=== PATIENT | female | born 1950 | race Hispanic/Latino ===

== ENCOUNTER → 2018-05-19 | Day surgery (SDC) | payer OTHER ==
[2018-04-27 15:07] LABS: BASOPHILS # (AUTO) 0.1 (0.0-0.1); BASOPHILS % 0.6 % (0.0-1.0); EOSINOPHILS # (AUTO) 0.3 (0.0-0.4); EOSINOPHILS % 2.9 % (0.0-6.0); HEMATOCRIT 33.2 % (34.2-44.1); HEMOGLOBIN 11.4 g/dL (12.0-16.0); LYMPHOCYTES # (AUTO) 3.6 (1.0-3.2); LYMPHOCYTES % 34.4 % (18.0-39.1); MEAN CORPUSCULAR HGB CONC 34.3 g/dL (31-35); MEAN CORPUSCULAR VOLUME 90.2 fL (81-99); MONOCYTES # (AUTO) 0.8 (0.2-0.8); MONOCYTES % 7.8 % (4.4-11.3); NEUTROPHILS # (AUTO) 5.7 (2.1-6.9); NEUTROPHILS % 53.9 % (38.7-80.0); PLATELET COUNT 406 x10e3/uL (140-360); RED BLOOD COUNT 3.68 x10e6/uL (3.6-5.1); RED CELL DISTRIBUTION WIDTH 13.5 % (11.7-14.4)
[~2018-05-19] MED LIST: AMLODIPINE BESYLATE PO; ATENOLOL PO; BACLOFEN PO; FENOFIBRATE PO; FENTANYL CITRATE/PF 100MCG/2 ML INJ ONE; MIDAZOLAM HCL 2 MG/2 ML VIAL ONE; PROPOFOL IV EMULSION 10 MG/ML 50 ML VIAL ONE
--- OUTSIDE RECORDS SUMMARY | 2018-05-19 05:13 | XMS REPORT ---
[facility] Address Unknown Phone Unavailable Care Team Providers Care Supply Chain Manager Name Role Phone Unavailable Unavailable Payers Payer Name Policy Type Policy Number Effective Date Expiration Date Problems This patient has no known problems. Allergies, Adverse Reactions, Alerts Allergy Name Allergy Type Status Severity Reaction(s) Onset Date Inactive Date Treating Clinician Comments No Known Contrast Allergies DA Active U 2006-11-23 00:00:00 No Known Drug Allergies DA Active U 2006-11-23 00:00:00 No Known Food Allergies DA Active U 2006-11-23 00:00:00 No Known Other Allergies DA Active U 2006-11-23 00:00:00 Medications This patient has no known medications.
[2018-05-19 08:15] VITALS: BP 120/61
== END | disposition home or self-care (01) ==
LOC: OR 05:10
PROVIDERS: ATTEND Internal Medicine Gastroenterology
DX: K29.80 Duodenitis without bleeding (principal); R07.89 Other chest pain; R19.7 Diarrhea, unspecified; Z12.11 Encounter for screening for malignant neoplasm of colon; E78.5 Hyperlipidemia, unspecified; E11.9 Type 2 diabetes mellitus without complications; Z88.8 Allergy status to other drugs, medicaments and biological substances; K29.70 Gastritis, unspecified, without bleeding; K44.9 Diaphragmatic hernia without obstruction or gangrene; K31.7 Polyp of stomach and duodenum; Z01.810 Encounter for preprocedural cardiovascular examination; Z01.812 Encounter for preprocedural laboratory examination
CPT/HCPCS: 36415; 43239; 43251; 85025; 93005; J2250

== ENCOUNTER → 2019-07-06 | Day surgery (SDC) | payer MEDICARE ==
[2019-07-02 09:38] LABS: BASOPHILS % 0.4 % (0.0-1.0); EOSINOPHILS # (AUTO) 0.2 (0.0-0.4); HEMATOCRIT 31.3 % (34.2-44.1); HEMOGLOBIN 10.5 g/dL (12.0-16.0); LYMPHOCYTES # (AUTO) 2.5 (1.0-3.2); LYMPHOCYTES % 32.3 % (18.0-39.1); MEAN CORPUSCULAR HEMOGLOBIN 30.1 pg (28-32); MEAN CORPUSCULAR HGB CONC 33.5 g/dL (31-35); MEAN CORPUSCULAR VOLUME 89.7 fL (81-99); MONOCYTES # (AUTO) 0.6 (0.2-0.8); MONOCYTES % 7.7 % (4.4-11.3); NEUTROPHILS # (AUTO) 4.3 (2.1-6.9); NEUTROPHILS % 56.5 % (38.7-80.0); PLATELET COUNT 371 x10e3/uL (140-360); RED BLOOD COUNT 3.49 x10e6/uL (3.6-5.1); RED CELL DISTRIBUTION WIDTH 13.1 % (11.7-14.4)
[~2019-07-06] MED LIST changes: +CHLORTHALIDONE25 MG PO; +FAMOTIDINE20 MG PO; +FENTANYL CITRATE/PF 100MCG/2 ML INJ IV ONE; -FENTANYL CITRATE/PF 100MCG/2 ML INJ ONE; +HYDROXYCHLOROQ200 MG PO; -MIDAZOLAM HCL 2 MG/2 ML VIAL ONE
[2019-07-06 10:15] VITALS: BP 114/66
== END | disposition home or self-care (01) ==
LOC: OR 06:30
PROVIDERS: ATTEND Internal Medicine Gastroenterology
CPT/HCPCS: 36415; 43239; 82948; 85025; 93005; J3010

== ENCOUNTER 2019-11-11 15:14 | Inpatient (IN) | payer MEDICARE, OTHER ==
[~2019-11-11] VITALS: Ht 154.9 cm; Wt 76.7 kg
[~2019-11-11 15:14] MED LIST changes: -FENTANYL CITRATE/PF 100MCG/2 ML INJ IV ONE; -PROPOFOL IV EMULSION 10 MG/ML 50 ML VIAL ONE
--- OUTSIDE RECORDS SUMMARY | 2019-11-11 15:17 | XMS REPORT | Clinical Summary ---
Author Author [facility] Address Unknown Phone Unavailable Care Team Providers Care Blast Furnace Helper Name Role Phone Priscilla Taylor MD PCP Allergies Comments Active Allergy Reactions Severity Noted Date Glipizide Unknown 06/24/2019 Reaction Lisinopril Unknown 06/24/2019 Reaction Metformin Unknown 06/24/2019 Reaction Metronidazole Unknown 06/24/2019 Reaction Pantoprazole Unknown 06/24/2019 Reaction Medications End Date Status Medication Sig Dispensed Refills Start Date Active amLODIPine (NORVASC) 10 Take 10 mg by 0 03/30/ mg tablet mouth daily. 9 Active atenoloL (TENORMIN) 25 MG Take 25 mg by 0 03/09 tablet mouth daily. 9 Active baclofen (LIORESAL) 10 MG Take 10 mg by 0 03/10 tablet mouth daily. 9 Active chlorthalidone (HYGROTEN) Take 25 mg by 0 03/09 25 MG tablet mouth daily. 9 Active fenofibrate (TRICOR) 145 Take 145 mg 0 MG tablet by mouth daily. Active hydroxychloroquine Take 400 mg 0 (PLAQUENIL) 200 mg tablet by mouth daily. Active famotidine (PEPCID) 40 MG Take 40 mg by 0 tablet mouth daily. Active om Take by 0 [id number] mouth. st 500 mg-500 mcg -1 mg-12.5 mg capsule Active calcium carbonate Take 600 mg 0 (CALCIUM 600) 600 mg by mouth 2 calcium (1,500 mg) tablet (two) times a day with meals. 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 Blood Pressure 62 06/24/2019 1:16 PM INTERNET MARKETING SPECIALIST Pulse - - Temperature - - Respiratory Rate 95% 06/24/2019 1:16 PM INTERNET MARKETING SPECIALIST Oxygen Saturation - - Inhaled Oxygen Concentration 72.7 kg (160 lb 3.2 oz) 06/24/2019 1:16 PM INTERNET MARKETING SPECIALIST Weight 154.9 cm (5' 1") 06/24/2019 1:16 PM INTERNET MARKETING SPECIALIST Height 30.27 06/24/2019 1:16 PM INTERNET MARKETING SPECIALIST Body Mass Index Plan of Treatment Health Maintenance Due Date Last Done Comments BREAST CANCER SCREENING 01/14/2000 COLONOSCOPY SCREENING 01/14/2000 SHINGLES VACCINES (#1) 01/14/2000 65+ PNEUMOCOCCAL VACCINE 2015 (1 of 2 - PCV13) INFLUENZA VACCINE 01/08/2020 Results Not on fileafter 11/10/2018 Insurance Type Payer Benefit Subscriber ID Effective Phone Address Plan / Dates Group HMO [employer] TEX[employer] xxxxxxxxx 2018-Shadi castanon Advance Directives For more information, please contact: [phone] Patient Senior Technical Architect Explanation Type Date Recorded Advance Directives, Living Will and Medical Power of Investment Officer
--- OUTSIDE RECORDS SUMMARY | 2019-11-11 15:17 | XMS REPORT | Clinical Summary ---
Author Author [facility] Organization [facility] Address Unknown Phone Unavailable Care Team Providers Care Aquatics Specialist Name Role Phone PCP Unavailable Allergies Comments Active Allergy Reactions Severity Noted Date Lisinopril Cough 01/15/2012 Medications End Date Status Medication Sig Dispensed Refills Start Date Active CALCIUM CARBONATE/VITAMIN Take by 0 D3 (CALCIUM + D OR) mouth. Active PYRIDOXINE HCL (VITAMIN Take by 0 B-6 OR) mouth. Active CYANOCOBALAMIN, VITAMIN Take by 0 B-12, (VITAMIN B-12 OR) mouth. Active MULTIVITAMIN OR Take by 0 mouth. Active fenofibrate Take 1 tablet 90 tablet 2 nanocrystallized (TRICOR) by mouth 5 145 mg tabletIndications: daily. HTN (hypertension) (therapeutic substitution for fenofibrate 160 mg per P&T) Active potassium chloride Take 1 tablet 90 tablet 2 08/05 (KLOR-CON M10) 10 mEq by mouth 5 extended release daily. tabletIndications: HTN (hypertension) Active atenolol-chlorthalidone TAKE ONE-HALF 90 tablet 2 50-25 mg per TABLET BY 5 tabletIndications: HTN MOUTH EVERY (hypertension) DAY. Active acetaminophen-codeine Take 1 tablet 30 tablet 0 (TYLENOL/CODEINE #3) by mouth 5 300-30 mg per every 4 hours tabletIndications: as needed for Neoplasm of scalp Pain. Active dexlansoprazole Take 1 90 capsule 1 (DEXILANT) 60 mg delayed capsule by 5 release mouth daily. capsuleIndications: Other and unspecified hyperlipidemia Active Sodium Hyaluronate, by 6 mL 0 [place], (HYALGAN) 10 INTRA-ARTICUL 5 mg/mL SolnIndications: AR route Left knee pain, DJD Please (Degenerative Joint dispense 3 Disease) of Knee prefilled syringes of Hyalgan (20mg/2ml) to be administered in clinic for series of three consecutive injections. 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 Gait difficulty 12/20/2013 Garrett's cyst 11/16/2013 Osteoarthritis 10/26/2013 Knee pain, left 10/09/2013 Bilateral carpal tunnel syndrome 12/18/2012 Positional vertigo 09/28/2010 HTN (hypertension) 02/14/2010 Immunizations Name Administration Dates Next Due Asa Ec 325mg Tab 11/02/2010 Nitrostat 0.4mg Tab 11/02/2010 Pneumoccoccal 10/18/2011 Family History Medical History Relation Name Comments Heart Mother Relation Name Status Comments Brother Brother Alive Brother Alive Brother Alive Father Mother Sister Sister Alive Sister Alive Social History Date Tobacco Use Types Packs/Day Years Used Former Smoker Smokeless Tobacco: Never Used Tobacco Cessation: Counseling Given: No Drinks/Week oz/Week Comments Alcohol Use No Sex Assigned at Date Recorded Not on file Industry Job Start Date Occupation Not on file Not on file Not on file Travel End Travel History Travel Start No recent travel history available. Last Filed Vital Signs Not on file Plan of Treatment Health Maintenance Due Date Last Done Comments Colorectal Cancer Scrn 08/05/2015 08/05/2014 Annual (FIT/FOBT) Age 50 to 75 Breast Cancer Scrn 10/07/2015 10/06/2014, 015, 09/26/2012, (Yearly) Additional history exists IMM Pneumococcal Age 65 Completed 10/18/2011 and Up Results Not on fileafter 11/10/2018
--- OUTSIDE RECORDS SUMMARY | 2019-11-11 15:17 | XMS REPORT | Continuity of Care Document ---
Author Author [facility] t Organization [facility] Address [address] [place] [address] Phone Unavailable Care Team Providers Care Informatics Nurse Specialist Name Role Phone Brandon LEMOS, Priscilla PCP Jagdeep LEMOS, Marshall Attphys Karen Mitchell Attphys Unavailable Bello RN, Ijeoma Attphys Unavailable Sandra LEMOS, Sera Attphys Payers Payer Name Policy Type Policy Number Effective Date Expiration Date S ben TEXANPLUSTEXANPLUS [id number] xxxxxxxxx 2018 00:00:00 [place] [facility] Problems Condition Name Condition Details Condition Category Status Onset Date Resolution Date Last Treatment Date Treating Clinician Comments Source CKD (chronic kidney disease) CKD (chronic kidney disease) Disease Active 2014-10-21 00:00:00 [facility] Synovitis of knee Synovitis of knee Disease Active 2014-02-01 00:00:00 [facility] Popliteal cyst Popliteal cyst Disease Active 2014-02-01 00:00:00 [facility] MMT (medial meniscus tear) MMT (medial meniscus tear) Disease Active 2014-02-01 00:00:00 [facility] Left knee DJD Left knee DJD Disease Active 2014-02-01 00:00:00 [facility] Gait difficulty Gait difficulty Disease Active 2013-12-20 00:00:00 [facility] Garrett's cyst Garrett's cyst Disease Active 2013-11-16 00:00:00 [facility] Osteoarthritis Osteoarthritis Disease Active 2013-10-26 00:00:00 [facility] Knee pain, left Knee pain, left Disease Active 2013-10-09 00:00:00 [facility] Bilateral carpal tunnel syndrome Bilateral carpal tunnel syndrom e Disease Active 2012-12-18 00:00:00 [facility] Positional vertigo Positional vertigo Disease Active 2010-09-28 00:00:0 0 [facility] HTN (hypertension) HTN (hypertension) Disease Active 2010-02-14 00:00:0 0 [facility] Allergies, Adverse Reactions, Alerts Allergy Name Allergy Type Status Severity Reaction(s) Onset Date Inacti ve Date Treating Clinician Comments Source Glipizide Propensity to adverse reactions to drug Active Unknown Reaction 2019-06-24 00:00:00 [facility] Lisinopril Propensity to adverse reactions to drug Active Unknown Reaction 2019-06-24 00:00:00 [facility] Metformin Propensity to adverse reactions to drug Active Unknown Reaction 2019-06-24 00:00:00 [facility] Metronidazole Propensity to adverse reactions to drug Active Unknown Reaction 2019-06-24 00:00:00 [facility] Pantoprazole Propensity to adverse reactions to drug Active Unknown Reaction 2019-06-24 00:00:00 [facility] Lisinopril Propensity to adverse reactions to drug Active Cough 2012-01-15 00:00:00 [facility] No Known Contrast Allergies DA Active U 2006-11-23 00:00: 00 [facility] No Known Drug Allergies DA Active U 2006-11-23 00:00:00 [facility] No Known Food Allergies DA Active U 2006-11-23 00:00:00 [facility] No Known Other Allergies DA Active U 2006-11-23 00:00:00 [facility] Family History Family Member Diagnosis Comments Start Date Stop Date Source Natural mother Heart disease [place] Natural mother Hypertension [place] [facility] Natural mother Varicose Veins Damien foster Druze Natural mother [facility] Social History Social Habit Start Date Stop Date Quantity Comments Source Sex Assigned At [facility] Sex Assigned At [place] [facility] Alcohol intake 2019-08-31 00:00:00 2019-08-31 00:00:00 Ex-drinker (fi nding) [place]oy Mayen Alcohol intake 2014-12-22 00:00:00 2014-12-22 00:00:00 [facility] History of tobacco use 2004-06-24 00:00:00 Current smoker [place] Mayen Smoking Status Start Date Stop Date Source Former smoker 2019-08-31 00:00:00 2019-08-31 00:00:00 [place] Former smoker 2014-12-22 00:00:00 2014-12-22 00:00:00 [facility] Medications Ordered Medication Name Filled Medication Name Start Date Stop Da te Current Medication? Ordering Clinician Indication Dosage Frequency Signature (SIG) Comments Components Source fenofibrate (TRICOR) 145 MG tablet 2019-06-24 13:23:51 Yes 145mg QD Take 145 mg by mouth daily. Soy Mayen hydroxychloroquine (PLAQUENIL) 200 mg tablet 2019-06-24 13:23:51 Yes 400mg QD Take 400 mg by mouth daily. Soy Mayen famotidine (PEPCID) 40 MG tablet 2019-06-24 13:23:51 Yes 40mg QD Take 40 mg by mouth daily. [place] Mayen om [id number]-riv-[id number]-canicga 500 mg-500 mcg -1 mg-12.5 mg capsule 2019-06-24 13:23:51 Yes Take by mouth. Soy Mayen calcium carbonate (CALCIUM 600) 600 mg calcium (1,500 mg) ta blet 2019-06-24 13:23:51 Yes 600mg Q.5D Take 600 m g by mouth 2 (two) times a day with meals. [place] Mayen baclofen (LIORESAL) 10 MG tablet 2019-03-31 00:00:00 Yes 10mg QD Take 10 mg by mouth daily. [place] Mayen amLODIPine (NORVASC) 10 mg tablet 2019-03-30 00:00:00 Yes 10mg QD Take 10 mg by mouth daily. [place] Mayen atenoloL (TENORMIN) 25 MG tablet 2019-03-22 00:00:00 Yes 25mg QD Take 25 mg by mouth daily. S[place] Mayen chlorthalidone (HYGROTEN) 25 MG tablet 2019-03-22 00:00:00 Yes 25mg QD Take 25 mg by mouth daily. [place] Justin wilkins Sodium Hyaluronate, Viscosup, (HYALGAN) 10 mg/mL Soln 2014-11-10 00:00:00 Yes DJD (Degenerative Joint Disease) of Knee by INTRA-ARTICULAR route Please dispense 3 prefilled syringes of Hyalgan (20mg/2ml) to be administered in clinic for series of three consecutive injections. [facility] dexlansoprazole (DEXILANT) 60 mg delayed release capsule 2014-10-06 00:00:00 Yes Other and unspecified hyperlipidemia 60mg QD Take 1 capsule by mouth daily. [facility] CALCIUM CARBONATE/VITAMIN D3 (CALCIUM + D OR) 2014-08-16 12:14:0 0 Yes Take by mouth. [facility] PYRIDOXINE HCL (VITAMIN B-6 OR) 2014-08-16 12:14:00 Yes Take by mouth. [facility] CYANOCOBALAMIN, VITAMIN B-12, (VITAMIN B-12 OR) 2014-08-16 12:14 :00 Yes Take by mouth. [facility] MULTIVITAMIN OR 2014-08-11 12:24:35 Yes Take by mouth. [facility] acetaminophen-codeine (TYLENOL/CODEINE #3) 300-30 mg per tab let 2014-08-11 00:00:00 Yes Neoplasm of scalp 1{tbl} Ta ke 1 tablet by mouth every 4 hours as needed for Pain. [facility] fenofibrate nanocrystallized (TRICOR) 145 mg tablet 08-05 00:00:00 Yes HTN (hypertension) 145mg QD Take 1 tablet by mouth daily. (therapeutic substitution for fenofibrate 160 mg per P&T) [facility] potassium chloride (KLOR-CON M10) 10 mEq extended release ta blet 2014-08-05 00:00:00 Yes HTN (hypertension) 10meq QD Take 1 tablet by mouth daily. [facility] atenolol-chlorthalidone 50-25 mg per tablet 2014-08-05 00:00 :00 Yes HTN (hypertension) TAKE ONE-HALF TABLET BY MOUTH EVERY DAY. [facility] Immunizations Ordered Immunization Name Filled Immunization Name Date Status Comments Source Pneumoccoccal 2011-10-18 00:00:00 Completed [facility] Nitrostat 0.4mg Tab 2010-11-02 00:00:00 Completed [facility] Asa Ec 325mg Tab 2010-11-02 00:00:00 Completed [facility] Vital Signs Vital Name Observation Time Observation Value Comments Source Systolic blood pressure 2019-06-24 13:16:00 143 mm[Hg] [facility] Diastolic blood pressure 2019-06-24 13:16:00 65 mm[Hg] [place] [place] Heart rate 2019-06-24 13:16:00 62 [facility] 2019-06-24 13:16:00 154.9 [facility] Body weight 2019-06-24 13:16:00 72.666 kg [facility] BMI 2019-06-24 13:16:00 30.27 kg/m2 [facility] Oxygen saturation in Arterial blood by Pulse oximetry 06-24 13:16:00 95 /min [facility] Procedures This patient has no known procedures. Plan of Care Planned Activity Planned Date Details Comments Source Future Scheduled Test 2020-01-08 00:00:00 INFLUENZA VACCINE [code = INFLUENZA VACCINE] [facility] Scheduled Test 2015-10-07 00:00:00 Breast Cancer Scrn (Yearly) [code = Breast Cancer Scrn (Yearly)] [facility] Scheduled Test 2015-08-05 00:00:00 Colorectal Cancer Scrn Annual (FIT/FOBT) Age 50 to 75 [code = Colorectal Cancer Scrn Annual (FIT/FOBT) Age 50 to 75] [facility] Scheduled Test 2015 00:00:00 65+ PNEUMOCOCCAL V ACCINE (1 of 2 - PCV13) [code = 65+ PNEUMOCOCCAL VACCINE (1 of 2 - PCV13)] [facility] Scheduled Test 2000-01-14 00:00:00 BREAST CANCER SCRE ENING [code = BREAST CANCER SCREENING] [facility] Scheduled Test 2000-01-14 00:00:00 COLONOSCOPY SCREEN ING [code = COLONOSCOPY SCREENING] [facility] Scheduled Test 2000-01-14 00:00:00 SHINGLES VACCINES (#1) [code = SHINGLES VACCINES (#1)] [facility] Encounters Start Date/Time End Date/Time Encounter Type Admission Type Attendi [facility] Care Department Encounter ID Source 2019-04-19 11:19:00 2019-04-19 11:19:00 Emergency E [id number] 2018-11-23 18:58:00 2018-11-23 18:58:00 Emergency E [facility] [address] [facility] [place] Results Test Description Test Time Test Comments Results Result Comments Source - [facility] 2019-01-04 14:27:00 FAX: Álvaro Angeles MD [phone] Reader: St: [facility] FAX: Priscilla uHnt MD [phone] FAX: Vini Rome MD [phone] Name: MAREK MONTES [facility] : 1950 Age/S: 68/F [address] [facility] Unit #: [id number] Loc: [place] [address] Phys: Vini Ann MD Acct: [id number] Dis Date: Status: REG CLI PHONE #: [phone] Exam Date: 01/04/2019914 FAX #: [phone] Reason: MALIGNANT NEOPLASM EXAMS: CPT CODE: [id number] PET/CT [facility] M[facility] 67540 HISTORY: Malignant neoplasm of the pancreas staging. COMPARISON: CT chest abdomen and pelvis from November 11, 2018. PET/CT SCAN: 11.6 mCi of FDG administered. Images obtained from the skull base to the upper thighs 1 hour postinjection. Blood glucose level = 100 mg/dL. HEAD AND NECK: Intense uptake within the brain parenchyma limits evaluation. Physiologic pharyngeal uptake. CHEST: No lung parenchymal uptake. Lingular nodule noted again measuring 1 cm without abnormal uptake. SUV uptake was 1.4 along with a 6 mm nodule in the right upper lobe anterolaterally with SUV uptake ranging up to 0.9. No pathologic hilar, mediastinal or axillary uptake or adenopathy. No chest wall or breast uptake. ABDOMEN: No hepatic or adrenal uptake. No pancreatic uptake is noted. No architectural distortion is noted. No ductal dilatation is noted. Excretion from both kidneys without abnormal uptake. Nonpathologic size retroperitoneal left posterior to the pancreatic body measuring 1.1 with SUV uptake ranging up to 1.9 which is not suspicious. No other pathologic mesenteric, retroperitoneal or retrocrural adenopathy. Excretion into the bowel. PELVIS: Excretion into the bowel and urinary bladder. No pelvic pathologic adenopathy. MUSCULOSKELETAL: No abnormal uptake. IMPRESSION: No abnormal uptake within the pancreas. No architectural distortion is noted. No ductal dilatation. No other areas of abnormal uptake either. Single borderline lymph node measured 1.1 cm in the retroperitoneum posterior to the pancreatic body with a SUV uptake ranging up to 1.9. This does not appear suspicious. at 1256 Reported and signed by: Tello Brown M.D. PAGE 1 Signed Report (CONTINUED) FAX: Álvaro Angeles MD [phone] Reader: St: REG FAX: Priscilla Hunt MD [phone] FAX: Vini Rome MD [phone] Name: SUSANMAREKBEV PIÑA [facility] : 1950 Age/S: 68/F [address] [facility] Unit #: [id number] Loc: [place] [address] Phys: Vnii Ann MD Acct: [id number] Dis Date: Status: REG CLI PHONE #: [phone] Exam Date: 01/04/2019914 FAX #: [phone] Reason: MALIGNANT NEOPLASM EXAMS: CPT CODE: [id number] PET/CT TUMOR SK BS MIDTH 56075 <Continued> CC: Álvaro Leonard MD; Priscilla Taylor MD; Vini Ann MD Technologist: [place] [facility]; Augie Tang Trnscrd Date/Time/By: 01/04/2019 (7176) : By: [email or web address] Orig Print D/T: S: 01/04/2019 (7967) PAGE 2 Signed Report - CT ABD PELVIS W/CONT 2018-11-11 10:08:00 Nam e: MAREK MONTES [facility] : 1950 Age/S: 68 / F [address] [facility] Unit #: [id number] Loc: [place] [address] Phys: Vini Ann MD Acct: [id number] Dis Date: Status: REG CLI PHONE #: [phone] Exam Date: 11/11/2018823 FAX #: [phone] Reason: MALIGNANT NEOPLASM EXAMS: CPT CODE: [id number] CT ABD PELVIS W/CONT 07096 HISTORY: Malignant neoplasm of and dependent pancreas/malignant. COMPARISON: None available. CT chest with contrast: 100 mL of Isovue-370. Automated exposure control. CT of abdomen: Unremarkable aorta with atherosclerotic change. No aneurysm or dissection. Unremarkable pulmonary arteries (not performed as PE protocol). Neck vasculature is well-opacified. SVC is unremarkable. Thyroid glands are normal in appearance. Esophageal wall is not thickened. No pathologic hilar, mediastinal or axillary adenopathy. Shotty left axillary adenopathy. Cardiac silhouette is mildly enlarged without pericardial effusion. Subcutaneous tissues and the musculature are normal in appearance. No lytic or blastic lesions are noted within the bony skeleton. The lungs are clear of infiltrates, effusion or congestion. Noncalcified 1 cm nodule within the lingula posteriorly best seen on image #41. This is indeterminate nodule. Correlate with PET scan. Additional 6 mm noncalcified nodule in the right upper lobe anterolaterally best seen on image #30. No bronchiectasis, honeycombing or fibrosis or endobronchial lesions. IMPRESSION: 1 cm lingular nodule in 6 mm right upper lobe lung nodule are indeterminate. Follow-up with PET scan for further characterization. No pathologic adenopathy. CT of abdomen: No liver metastases are normal enhancing masses or lesions. The liver measured 19.5 cm in length. Portal vein and hepatic artery are patent. Patient is post cholecystectomy. The spleen is enhancing homogeneously. No discrete mass is noted. Stomach is distended incompletely but normal. Pancreas is enhancing homogeneously. No discrete abnormal enhancing masses or lesions on the early on the delayed phase. Correlate with PAGE 1 Signed Report (CONTINUED) Name: MAREK MONTES [facility] : 1950 Age/S: 68 / F [address] [facility] Unit #: [id number] Loc: [place] [address] Phys: Vini Ann MD Acct: [id number] Dis Date: Status: REG CLI PHONE #: [phone] Exam Date: 11/11/2018823 FAX #: [phone] Reason: MALIGNANT NEOPLASM EXAMS: CPT CODE: [id number] CT ABD PELVIS W/CONT 29728 <Continued> either PET scan or MRI scan for further evaluation as no discrete lesions is noted on this exam. No ductal dilatation. No inflammatory changes or fluid collections either. The adrenals are normal. Kidneys are free from hydroureteronephrosis with multiple bilateral Bosniak 2 lesions with average Hounsfield unit measurement ranging greater than 20. Bosniak 1 lesion in the medial right interpolar region. No pathologic adenopathy. Ath erosclerotic change of the abdominal and pelvic vasculature which remains well opacified. No bowel obstruction or colitis or diverticulitis or enteritis. Constipation. Diverticulosis. CT PELVIS: Appendix is normal at visible but no inflammatory changes. Sigmoid diverticulosis without diverticulitis. Urinary bladder distended incompletely with mildly thickened urinary bladder wall. Patient is post hysterectomy. No free fluid or free air. No pelvic pathologic adenopathy Subcutaneous tissues and the musculature are normal in appearance. No lytic or blastic lesions are noted within the bony skeleton. DJD. IMPRESSION: No discrete mass within the pancreas. No abnormal enhancing masses or lesions. No ductal dilatation. No inflammatory changes. Correlate with PET scan and/or MRI scan for further evaluation and correlate with any outside images. at 1008 Reported and signed by: Tello Brown M.D. CC: Álvaro Leonard MD; Priscilla Taylor MD; Vini Ann MD Technologist:Kamilla Maria,RT(R),CT CTDI: DLP: Trnscb Date/Time: 11/11/2018 (1008) [email or web address] Orig Print D/T: S: 11/11/2018 (1019) PAGE 2 Signed Report - CT CHEST W/CONTRAST 2018-11-11 10:08:00 Name : MAREK MONTES [facility] : 1950 Age/S: 68 / F [address] [facility] Unit #: [id number] Loc: [place] [address] Phys: Vini Ann MD Acct: [id number] Dis Date: Status: REG CLI PHONE #: [phone] Exam Date: 11/11/2018823 FAX #: [phone] Reason: MALIGNANT NEOPLASM EXAMS: CPT CODE: [id number] CT CHEST W/CONTRAST 75387 HISTORY: Malignant neoplasm of and dependent pancreas/malignant. COMPARISON: None available. CT chest with contrast: 100 mL of Isovue-370. Automated exposure control. CT of abdomen: Unremarkable aorta with atherosclerotic change. No aneurysm or dissection. Unremarkable pulmonary arteries (not performed as PE protocol). Neck vasculature is well-opacified. SVC is unremarkable. Thyroid glands are normal in appearance. Esophageal wall is not thickened. No pathologic hilar, mediastinal or axillary adenopathy. Shotty left axillary adenopathy. Cardiac silhouette is mildly enlarged without pericardial effusion. Subcutaneous tissues and the musculature are normal in appearance. No lytic or blastic lesions are noted within the bony skeleton. The lungs are clear of infiltrates, effusion or congestion. Noncalcified 1 cm nodule within the lingula posteriorly best seen on image #41. This is indeterminate nodule. Correlate with PET scan. Additional 6 mm noncalcified nodule in the right upper lobe anterolaterally best seen on image #30. No bronchiectasis, honeycombing or fibrosis or endobronchial lesions. IMPRESSION: 1 cm lingular nodule in 6 mm right upper lobe lung nodule are indeterminate. Follow-up with PET scan for further characterization. No pathologic adenopathy. CT of abdomen: No liver metastases are normal enhancing masses or lesions. The liver measured 19.5 cm in length. Portal vein and hepatic artery are patent. Patient is post cholecystectomy. The spleen is enhancing homogeneously. No discrete mass is noted. Stomach is distended incompletely but normal. Pancreas is enhancing homogeneously. No discrete abnormal enhancing masses or lesions on the early on the delayed phase. Correlate with PAGE 1 Signed Report (CONTINUED) Name: MAREK MONTES [facility] : 1950 Age/S: 68 / F [address] [facility] Unit #: [id number] Loc: [place] [address] Phys: Vini Ann MD Acct: [id number] Dis Date: Status: REG CLI PHONE #: [phone] Exam Date: 11/11/2018823 FAX #: [phone] Reason: MALIGNANT NEOPLASM EXAMS: CPT CODE: [id number] CT CHEST W/CONTRAST 73385 <Continued> either PET scan or MRI scan for further evaluation as no discrete lesions is noted on this exam. No ductal dilatation. No inflammatory changes or fluid collections either. The adrenals are normal. Kidneys are free from hydroureteronephrosis with multiple bilateral Bosniak 2 lesions with average Hounsfield unit measurement ranging greater than 20. Bosniak 1 lesion in the medial right interpolar region. No pathologic adenopathy. Ath erosclerotic change of the abdominal and pelvic vasculature which remains well opacified. No bowel obstruction or colitis or diverticulitis or enteritis. Constipation. Diverticulosis. CT PELVIS: Appendix is normal at visible but no inflammatory changes. Sigmoid diverticulosis without diverticulitis. Urinary bladder distended incompletely with mildly thickened urinary bladder wall. Patient is post hysterectomy. No free fluid or free air. No pelvic pathologic adenopathy Subcutaneous tissues and the musculature are normal in appearance. No lytic or blastic lesions are noted within the bony skeleton. DJD. IMPRESSION: No discrete mass within the pancreas. No abnormal enhancing masses or lesions. No ductal dilatation. No inflammatory changes. Correlate with PET scan and/or MRI scan for further evaluation and correlate with any outside images. at 1008 Reported and signed by: Tello Brown M.D. CC: Álvaro Leonard MD; Priscilla Taylor MD; Vini Ann MD Technologist:Kamilla Maria,RT(R),CT CTDI: DLP: Trnscb Date/Time: 11/11/2018 (1008) [email or web address] Orig Print D/T: S: 11/11/2018 (1017) PAGE 2 Signed Report CREATININE W ESTIMATED GFR 2018-11-11 07:08:00 Test Item BEDSIDE CREATININE (test code = CREATBED) mg/dL 0.7-1.3 N GLOMERULAR FILTRATION RATE POC (test code = GFRBED) 44 >6 0 LL CREATININE W ESTIMATED [id number] 07:08:00* Test Item Value Reference Range Interpretation Comments BEDSIDE CREATININE (test code = CREATBED) 1.21 mg/dL 0.7-1.3 N GLOMERULAR FILTRATION RATE POC (test code = GFRBED) 47 >6 0 LL Previously reported result: 44 Edited by: AMILCAR on 11/11/18:21748211/11/18 0708: GFRBED previously reported as: 44 *L XR Chest 1 View [id number] 09:32:31Patient: MAREK MONTES Date/Time03/22/2018 09:00 CDTReason for ExamCHF (Congestive Heart Failure), [id number]: XR Chest 1 View FrontalHISTORY: CHF (Congestive Heart Failure), knownCOMPARISON: 03/29/2008FINDINGS:The lungs are clear. No pleural effusion or pneumothorax. The cardiac silhouette is within normal limits. No acute osseous abnormalities.IMPRESSION:No acute cardiopulmonary disease. Final Dic tated by: MD Presley, ThompsonDictated DT/TM: 03/22/2018 9:32 amSigned by: Andrew segovia MD, Treygned (Electronic Signature): 03/22/2018 9:32 am
[2019-11-11 16:52] LABS: BASOPHILS % 0.4 % (0.0-1.0); EOSINOPHILS % 0.2 % (0.0-6.0); HEMATOCRIT 30.5 % (34.2-44.1); HEMOGLOBIN 10.5 g/dL (12.0-16.0); LYMPHOCYTES % 20.9 % (18.0-39.1); MEAN CORPUSCULAR HEMOGLOBIN 29.6 pg (28-32); MEAN CORPUSCULAR HGB CONC 34.4 g/dL (31-35); MEAN CORPUSCULAR VOLUME 85.9 fL (81-99); MONOCYTES # (AUTO) 0.4 (0.2-0.8); MONOCYTES % 4.2 % (4.4-11.3); NEUTROPHILS % 73.9 % (38.7-80.0); PLATELET COUNT 393 x10e3/uL (140-360); RED BLOOD COUNT 3.55 x10e6/uL (3.6-5.1); RED CELL DISTRIBUTION WIDTH 12.5 % (11.7-14.4)
[2019-11-11 16:55] LABS: BILIRUBIN,URINE NEGATIVE (NEGATIVE); CLARITY,URINE SL CLOUDY (CLEAR); COLOR,URINE YELLOW (YELLOW); KETONES,URINE NEGATIVE (NEGATIVE); LEUKOCYTE ESTERASE ,URINE NEGATIVE (NEGATIVE); NITRITE,URINE NEGATIVE (NEGATIVE); PROTEIN,URINE DIPSTICK NEGATIVE (NEGATIVE); URINE UROBILINOGEN 0.2 mg/dL (0.2 - 1)
[2019-11-11 17:07] LABS: ALBUMIN 4.1 g/dL (3.5-5.0); ALBUMIN/GLOBULIN RATIO 0.9 (0.8-2.0); ANION GAP 14.1 mmol/L (8-16); CALCIUM 10.1 mg/dL (8.4-10.2); CREATININE, SERUM 1.55 mg/dL (0.57-1.11); POTASSIUM 4.1 mmol/L (3.5-5.1)
[2019-11-11 17:14] LABS: CREATINE KINASE MB 4.2 ng/mL (0-5.0)
[2019-11-11 17:16] LABS: BACTERIA,URINE RARE /HPF; EPITHELIAL CELLS,URINE FEW /LPF; RBC,URINE 0-5 /HPF (0-5)
[2019-11-11] MEDS ORDERED: ONDANSETRON HCL INJ 2MG/ML 2ML 2 MG/ML VIAL IV STA (17:41)
[2019-11-11] MEDS ORDERED: SODIUM CHLORIDE 0.9% 1000ML 1,000 ML IV STA (17:41)
[2019-11-11] MEDS ORDERED: BACTRIM DS TAB1 EACH PO (18:00)
[2019-11-11] MEDS ORDERED: OMEPRAZOLE40 MG PO (18:00)
[2019-11-11] MEDS ORDERED: INTEGRA CAPSUL1 EACH (18:00)
--- NOTE | 2019-11-11 18:52 | NUR ---
REPORT RC'D FROM Marycruz NICHOLSON RN.
--- OUTSIDE RECORDS SUMMARY | 2019-11-11 18:55 | XMS REPORT | Continuity of Care Document ---
Author Author [facility] t Organization [facility] Address [address] [place] [address] Phone Unavailable Care Team Providers Care Supervisor Coating Name Role Phone Brandon LEMOS, Priscilla PCP Jagdeep LEMOS, Marshall Attphys Karen Mitchell Attphys Unavailable Bello RN, Ijeoma Attphys Unavailable Sandra LEMOS, Sera Attphys Payers Payer Name Policy Type Policy Number Effective Date Expiration Date S ben TEXANPLUSTEXANPLUS [id number] xxxxxxxxx 2018 00:00:00 [facility] [facility] Problems Condition Name Condition Details Condition Category Status Onset Date Resolution Date Last Treatment Date Treating Clinician Comments Source CKD (chronic kidney disease) CKD (chronic kidney disease) Disease Active 2014-10-21 00:00:00 [facility] Synovitis of knee Synovitis of knee Disease Active 2014-02-01 00:00:00 [facility] Popliteal cyst Popliteal cyst Disease Active 2014-02-01 00:00:00 [facility] MMT (medial meniscus tear) MMT (medial meniscus tear) Disease Active 2014-02-01 00:00:00 [facility] Left knee DJD Left knee DJD Disease Active 2014-02-01 00:00:00 [facility] Gait difficulty Gait difficulty Disease Active 2013-12-20 00:00:00 [facility] Garrett's cyst Garrett's cyst Disease Active 2013-11-16 00:00:00 [facility] Osteoarthritis Osteoarthritis Disease Active 2013-10-26 00:00:00 [facility] Knee pain, left Knee pain, left Disease Active 2013-10-09 00:00:00 [facility] Bilateral carpal tunnel syndrome Bilateral carpal tunnel syndrom e Disease Active 2012-12-18 00:00:00 [facility] Positional vertigo Positional vertigo Disease Active 2010-09-28 00:00:0 0 [facility] HTN (hypertension) HTN (hypertension) Disease Active 2010-02-14 00:00:0 0 [facility] Allergies, Adverse Reactions, Alerts Allergy Name Allergy Type Status Severity Reaction(s) Onset Date Inacti ve Date Treating Clinician Comments Source Glipizide Propensity to adverse reactions to drug Active Unknown Reaction 2019-06-24 00:00:00 [facility] Lisinopril Propensity to adverse reactions to drug Active Unknown Reaction 2019-06-24 00:00:00 [facility] Metformin Propensity to adverse reactions to drug Active Unknown Reaction 2019-06-24 00:00:00 [facility] Metronidazole Propensity to adverse reactions to drug Active Unknown Reaction 2019-06-24 00:00:00 [facility] Pantoprazole Propensity to adverse reactions to drug Active Unknown Reaction 2019-06-24 00:00:00 [facility] Lisinopril Propensity to adverse reactions to drug Active Cough 2012-01-15 00:00:00 [facility] No Known Contrast Allergies DA Active U 2006-11-23 00:00: 00 [facility] No Known Drug Allergies DA Active U 2006-11-23 00:00:00 [facility] No Known Food Allergies DA Active U 2006-11-23 00:00:00 [facility] No Known Other Allergies DA Active U 2006-11-23 00:00:00 [facility] Family History Family Member Diagnosis Comments Start Date Stop Date Source Natural mother Heart disease Soy Mayen Natural mother Hypertension [facility] Natural mother Varicose Veins Damien [facility] Natural mother [facility] Social History Social Habit Start Date Stop Date Quantity Comments Source Sex Assigned At [facility] Alcohol intake 2014-12-22 00:00:00 2014-12-22 00:00:00 [facility] History of tobacco use 2004-06-24 00:00:00 Current smoker Soy Mayen Smoking Status Start Date Stop Date Source Former smoker 2014-12-22 00:00:00 2014-12-22 00:00:00 [facility] Medications Ordered Medication Name Filled Medication Name [...] mg by mouth daily. Soy Mayen om [id number] 500 mg-500 mcg -1 mg-12.5 mg capsule [...] Take 25 mg by mouth daily. Soy wilkins Sodium Hyaluronate, Viscosup, (HYALGAN) 10 mg/mL Soln 2014-11-10 00:00:00 Yes DJD (Degenerative Joint Disease) of Knee by INTRA-ARTICULAR route Please dispense 3 prefilled syringes of Hyalgan (20mg/2ml) to be administered in clinic for series of three consecutive injections. [facility] dexlansoprazole (DEXILANT) 60 mg delayed release capsule 2014-10-06 00:00:00 Yes Other and unspecified hyperlipidemia 60mg QD Take 1 capsule by mouth daily. [facility] CALCIUM CARBONATE/VITAMIN D3 (CALCIUM + D OR) 2014-08-16 12:14:0 0 Yes Take by mouth. [facility] PYRIDOXINE HCL (VITAMIN B-6 OR) 2014-08-16 12:14:00 Yes Take by mouth. [facility] CYANOCOBALAMIN, VITAMIN B-12, (VITAMIN B-12 OR) 2014-08-16 12:14 :00 Yes Take by mouth. [facility] MULTIVITAMIN OR 2014-08-11 12:24:35 Yes Take by mouth. [facility] acetaminophen-codeine (TYLENOL/CODEINE #3) 300-30 mg per tab let 2014-08-11 00:00:00 Yes Neoplasm of scalp 1{tbl} Ta ke 1 tablet by mouth every 4 hours as needed for Pain. [facility] fenofibrate nanocrystallized (TRICOR) 145 mg tablet 08-05 00:00:00 Yes HTN (hypertension) 145mg QD Take 1 tablet by mouth daily. (therapeutic substitution for fenofibrate 160 mg per P&T) [facility] potassium chloride (KLOR-CON M10) 10 mEq extended release ta blet 2014-08-05 00:00:00 Yes HTN (hypertension) 10meq QD Take 1 tablet by mouth daily. [facility] atenolol-chlorthalidone 50-25 mg per tablet 2014-08-05 00:00 :00 Yes HTN (hypertension) TAKE ONE-HALF TABLET BY MOUTH EVERY DAY. [facility] Immunizations Ordered Immunization Name Filled Immunization Name Date Status Comments Source Pneumoccoccal 2011-10-18 00:00:00 [facility] Nitrostat 0.4mg Tab 2010-11-02 00:00:00 Completed [facility] Asa Ec 325mg Tab 2010-11-02 00:00:00 Completed [facility] Vital Signs Vital Name Observation Time Observation Value Comments Source Systolic blood pressure 2019-06-24 13:16:00 143 mm[Hg] [facility] Diastolic blood pressure 2019-06-24 13:16:00 65 mm[Hg] [facility] Heart rate 2019-06-24 13:16:00 62 /min [facility] Body height 2019-06-24 13:16:00 154.9 cm [facility] [place] Body weight 2019-06-24 13:16:00 72.666 kg [place] BMI 2019-06-24 13:16:00 30.27 kg/m2 [facility] [place] Oxygen saturation in Arterial blood by Pulse oximetry 06-24 13:16:00 95 /min [facility] Procedures This patient has no known procedures. Plan of Care Planned Activity Planned Date Details Comments Source Future Scheduled Test 2020-01-08 00:00:00 INFLUENZA VACCINE [code = INFLUENZA VACCINE] [facility] Scheduled Test 2015-10-07 00:00:00 Breast Cancer Scrn (Yearly) [code = Breast Cancer Scrn (Yearly)] [facility] Scheduled Test 2015-08-05 00:00:00 Colorectal Cancer Scrn Annual (FIT/FOBT) Age 50 to 75 [code = Colorectal Cancer Scrn Annual (FIT/FOBT) Age 50 to 75] [facility] Scheduled Test 2015 00:00:00 65+ PNEUMOCOCCAL V ACCINE (1 of 2 - PCV13) [code = 65+ PNEUMOCOCCAL VACCINE (1 of 2 - PCV13)] [facility] Scheduled Test 2000-01-14 00:00:00 BREAST CANCER SCRE ENING [code = BREAST CANCER SCREENING] [facility] Scheduled Test 2000-01-14 00:00:00 COLONOSCOPY SCREEN ING [code = COLONOSCOPY SCREENING] [facility] Scheduled Test 2000-01-14 00:00:00 SHINGLES VACCINES (#1) [code = SHINGLES VACCINES (#1)] [facility] Encounters Start Date/Time End Date/Time Encounter Type Admission Type [facility] Care Department Encounter ID Source 2019-04-19 11:19:00 2019-04-19 11:19:00 Emergency E MHNW MHNW 9315 MHNW 2018-11-23 18:58:00 2018-11-23 18:58:00 Emergency E [facility]NW NW 7501 NW Results Test Description Test Time Test Comments Results Result Comments Source - PET/CT TUMOR SK BS MIDTH 2019-01-04 14:27:00 FAX: Y Daccak,Rukan MD [phone] [place]: St: REG FAX: Priscilla Hunt MD [phone] FAX: Vini Rome MD [phone] Name: MAREK MONTES [facility] : 1950 Age/S: 68/F [address] [facility] Unit #: [id number] Loc: [place] [address] Phys: Vini Ann MD Acct: [id number] Dis Date: Status: REG CLI PHONE #: [phone] Exam Date: 01/04/2019914 FAX #: [phone] Reason: MALIGNANT NEOPLASM EXAMS: CPT CODE: [id number] PET/CT TUMOR SK MIDTH 71810 HISTORY: Malignant neoplasm of the pancreas staging. [...] 1.9. This does not appear suspicious. at 1422 Reported and signed by: Tello Brown M.D. PAGE 1 Signed Report (CONTINUED) FAX: Álvaro Angeles MD [phone] [place]: St: REG FAX: Priscilla Hunt MD [phone] FAX: Vini Rome MD [phone] Name: MAREK MONTES AYANA [facility] : 1950 Age/S: 68/F [address] [facility] Unit #: [id number] Loc: [place] [address] Phys: Vini Ann MD Acct: [id number] Dis Date: Status: REG CLI PHONE #: [phone] Exam Date: 01/04/2019914 FAX #: [phone] Reason: MALIGNANT NEOPLASM EXAMS: CPT CODE: [id number] PET/CT TUMOR SK BS MIDTH 80801 <Continued> CC: Álvaro Leonard MD; Priscilla Taylor MD; Vini Ann MD Technologist: [place]; Augie Tang Trnscrd Date/Time/By: 01/04/2019 (3606) : By: [email or web address] Orig Print D/T: S: 01/04/2019 (1430) PAGE 2 Signed Report - CT ABD PELVIS W/CONT 2018-11-11 10:08:00 Nam e: MAREK MONTES [facility] : 1950 Age/S: 68 / F [address] [facility] Unit #: [id number] Loc: [place] [address] Phys: Vini Ann MD Acct: [id number] Dis Date: Status: REG CLI PHONE #: [phone] Exam Date: 11/11/2018823 FAX #: [phone] Reason: MALIGNANT NEOPLASM EXAMS: CPT CODE: [id number] CT ABD PELVIS W/CONT 62820 HISTORY: Malignant neoplasm of and dependent pancreas/malignant. [...] 1 Signed Report (CONTINUED) [facility] 1950 [facility]S: 68 [facility] F [address] [facility] Unit #: [id number] Loc: [place] [address] Phys: Vini Ann MD Acct: [id number] Dis Date: Status: REG CLI PHONE #: [phone] Exam Date: 11/11/2018823 FAX #: [phone] Reason: MALIGNANT NEOPLASM EXAMS: CPT CODE: [id number] CT ABD PELVIS W/CONT 55099 <Continued> either PET scan or MRI scan [...] Maria,RT(R),CT CTDI: DLP: Trnscb Date/Time: 11/11/2018 (1008) [email or web address] Orig Print D/T: S: 11/11/2018 (1011) PAGE 2 Signed Report - CT CHEST W/CONTRAST 2018-11-11 10:08:00 Name : MAREK MONTES [facility] : 1950 Age/S: 68 / F [address] Unit #: [id number] Loc: [place] [address] Phys: Vini Ann MD Acct: [id number] Dis Date: Status: REG CLI PHONE #: [phone] Exam Date: 11/11/2018823 FAX #: [phone] Reason: MALIGNANT NEOPLASM EXAMS: CPT CODE: [id number] CT CHEST W/CONTRAST 12971 HISTORY: Malignant neoplasm of and dependent pancreas/malignant. [...] 1 Signed Report (CONTINUED) Name: MAREK MONTES [facility] : 1950 Age/S: 68 / F [address] Unit #: [id number] Loc: [place], [place] [address] Phys: Vini Ann MD Acct: [id number] Dis Date: Status: REG CLI PHONE #: [phone] Exam Date: 11/11/2018823 FAX #: [phone] Reason: MALIGNANT NEOPLASM EXAMS: CPT CODE: [id number] CT CHEST W/CONTRAST 86982 <Continued> either PET scan or MRI scan [...] Maria,RT(R),CT CTDI: DLP: Trnscb Date/Time: 11/11/2018 (1008) [email or web address] Orig Print D/T: S: 11/11/2018 (5041) PAGE 2 Signed Report CREATININE W ESTIMATED GFR 2018-11-11 07:08:00 Test Item BEDSIDE CREATININE (test code = CREATBED) mg/dL 0.7-1.3 N GLOMERULAR FILTRATION RATE POC (test code = GFRBED) 44 >6 0 LL CREATININE W ESTIMATED [id number] 07:08:00* Test Item Value Reference Range Interpretation Comments BEDSIDE CREATININE (test code = CREATBED) 1.21 mg/dL 0.7-1.3 N GLOMERULAR FILTRATION RATE POC (test code = GFRBED) 47 >6 0 LL Previously reported result: 44 Edited by: AMILCAR on 11/11/18:657628/10/25 0708: GFRBED previously reported as: 44 *L XR Chest 1 View [id number] 09:32:31Patient: MAREK MONTES Date/Time03/22/2018 09:00 CDTReason for ExamCHF (Congestive Heart Failure), [id number]: XR Chest 1 View FrontalHISTORY: CHF (Congestive Heart Failure), knownCOMPARISON: 03/29/2008FINDINGS:The lungs are clear. No pleural effusion or pneumothorax. The cardiac silhouette is within normal limits. No acute osseous abnormalities.IMPRESSION:No acute cardiopulmonary disease. Final Dic tated by: MD Presley, Carinactsaleem DT/TM: 03/22/2018 9:32 amSigned by: Andrew segovia MD, ElizabethekSigned (Electronic Signature): 03/22/2018 9:32 am
--- OUTSIDE RECORDS SUMMARY | 2019-11-11 18:55 | XMS REPORT | Clinical Summary ---
Author Author [facility] Organization [facility] Address Unknown Phone Unavailable Care Team Providers Care Fish Culturist Name Role Phone Priscilla Taylor MD PCP [...] mouth daily. Active om Take by 0 [id number]-wzu-[id number]-F0-dfpfk mouth. st 500 mg-500 mcg -1 mg-12.5 [...] Comments Vital Sign 143/65 06/24/2019 1:16 PM ELECTRIC TRUCKER Blood Pressure 62 06/24/2019 1:16 PM ELECTRIC TRUCKER Pulse - - Temperature - - Respiratory Rate 95% 06/24/2019 1:16 PM ELECTRIC TRUCKER Oxygen Saturation - - Inhaled Oxygen Concentration 72.7 kg (160 lb 3.2 oz) 06/24/2019 1:16 PM ELECTRIC TRUCKER Weight 154.9 cm (5' 1") 06/24/2019 1:16 PM ELECTRIC TRUCKER Height 30.27 06/24/2019 1:16 PM ELECTRIC TRUCKER Body Mass Index Plan of Treatment Health [...] Advance Directives For more information, please contact: [phone] Patient Polymer Materials Consultant Explanation Type Date Recorded Advance Directives, Living Will and Medical Power of Audience Development Manager
--- OUTSIDE RECORDS SUMMARY | 2019-11-11 18:55 | XMS REPORT | Clinical Summary ---
Author Author [facility] Organization [facility] Address Unknown Phone Unavailable Care Team Providers Care Axle Inspector Name Role Phone PCP Unavailable Allergies Comments [...]
--- NOTE | 2019-11-11 19:00 | NUR ---
Covid 19 swab obtained and sent to lab.
--- NOTE | 2019-11-11 19:15 | Emergency Department Note ---
History of Present Illnes History of Present Illness Chief Complaint: Abdominal Complaints History of Present Illness This is a 69 year old female arrives the ED with complaints of abdominal pain, she states she has history of diverticulitis and was discharged 2 days ago but the pain is now worse. She states she cannot hold anything down. Chief Complaint Comment HERE FOR ABDOMINAL PAIN SINCE THIS MORNING, HAS VOMITED X2. STATES EPIGASTRIC PAIN. DENIES SHORTNESS OF BREATH, ALSO REPORTS CHILLS LAST NIGHT. Historian: Patient Arrival Mode: Car Counterintelligence Agent Required: Yes Severity: mild Timing of current episode: constant Progression: worsening Past Medical/Family History Physician Review I have reviewed the patient's past medical and family history. Any updates have been documented here. Past Medical History Recent Fever: No Clinical Suspicion of Infectio: No New/Unexplained Change in Ment: No Past Medical History: Hypertension, Hyperlipedemia, Osteoarthritis Past Surgical History: Appendectomy, Tubal Ligation Social History Smoking Cessation: Never Smoker Counseling Performed: No Alcohol Use: None Any Illegal Drug Use: No TB Exposure/Symptoms: No Physically hurt or threatened: No Other Any Pre-Existing Lines (PICC,: No Is patient up to date on immun: Yes Last Flu: utd Last Pneumovax: utd Review of Systems Review of Systems Constitutional: no symptoms EENTM: no symptoms Cardiovascular: no symptoms Respiratory: no symptoms Gastrointestinal: abdominal pain, nausea, vomiting Genitourinary: no symptoms Musculoskeletal: no symptoms Neurological: no symptoms Psychological: no symptoms Endocrine: no symptoms Hematological/Lymphatic: no symptoms Review of other systems All other systems reviewed and negative. Physical Exam Related Data Allergies: Coded Allergies: gabapentin (Verified Allergy, Mild, 07/02/19) HEADACHE lisinopril (Verified Allergy, Mild, COUGH, 04/27/18) metronidazole (Verified Allergy, Mild, 07/02/19) DIZZINESS glipizide (Verified Allergy, Unknown, DIARRHEA, 04/27/18) metformin (Verified Allergy, Unknown, DIARRHEA, 04/27/18) pantoprazole (Verified Allergy, Unknown, COUGH, 04/27/18) Triage Vital Signs Vital Signs Date Time Temp Pulse Resp B/P (MAP) Pulse Ox O2 Delivery O2 Flow Rate FiO2 11/11/19 15:36 98.1 67 16 151/76 97 Physical Exam CONSTITUTIONAL Constitutional: well-developed, well-nourished HENT HENT: normocephalic, atraumatic, oropharynx clear/moist, nose normal HENT L/R: left ext ear normal, right ext ear normal EYES Eyes: PERRL, conjunctivae normal NECK Neck: ROM normal PULMONARY Pulmonary: effort normal, breath sounds normal CARDIOVASCULAR Cardiovascular: regular rhythm, heart sounds normal, capillary refill normal, normal rate GASTROINTESTINAL Abdominal: soft, nontender, bowel sounds normal GENITOURINARY Genitourinary: exam deferred SKIN Skin: warm, dry MUSCULOSKELETAL Musculoskeletal: ROM normal NEUROLOGICAL Neurological: alert, oriented x 3, no gross motor or sensory deficits PSYCHOLOGICAL Psychological: mood/affect normal, judgement normal Results Laboratory Result Diagram: 11/11/19 1545 11/11/19 1545 Laboratory Laboratory Tests Test 11/11/19 15:45 White Blood Count 9.42 x10e3/uL (4.8-10.8) Red Blood Count 3.55 x10e6/uL (3.6-5.1) Hemoglobin 10.5 g/dL (12.0-16.0) Hematocrit 30.5 % (34.2-44.1) Mean Corpuscular Volume 85.9 fL (81-99) Mean Corpuscular Hemoglobin 29.6 pg (28-32) Mean Corpuscular Hemoglobin Concent 34.4 g/dL (31-35) Red Cell Distribution Width 12.5 % (11.7-14.4) Platelet Count 393 x10e3/uL (140-360) Neutrophils (%) (Auto) 73.9 % (38.7-80.0) Lymphocytes (%) (Auto) 20.9 % (18.0-39.1) Monocytes (%) (Auto) 4.2 % (4.4-11.3) Eosinophils (%) (Auto) 0.2 % (0.0-6.0) Basophils (%) (Auto) 0.4 % (0.0-1.0) Neutrophils # (Auto) 7.0 (2.1-6.9) Lymphocytes # (Auto) 2.0 (1.0-3.2) Monocytes # (Auto) 0.4 (0.2-0.8) Eosinophils # (Auto) 0.0 (0.0-0.4) Basophils # (Auto) 0.0 (0.0-0.1) Absolute Immature Granulocyte (auto 0.04 x10e3/uL (0-0.1) Urine Color Yellow (YELLOW) Urine Clarity Sl cloudy (CLEAR) Urine pH 6 (5 - 7) Urine Specific [place] 1.020 (1.010-1.025) Urine Protein Negative (NEGATIVE) Urine Glucose (UA) Negative (NEGATIVE) Urine Ketones Negative (NEGATIVE) Urine Blood Trace (NEGATIVE) Urine Nitrite Negative (NEGATIVE) Urine Bilirubin Negative (NEGATIVE) Urine Urobilinogen 0.2 mg/dL (0.2 - 1) Urine Leukocyte Esterase Negative (NEGATIVE) Urine RBC 0-5 /HPF (0-5) Urine WBC None /HPF (0-5) Urine Epithelial Cells Few /LPF (NONE) Urine Bacteria Rare /HPF (NONE) Urine Coarse Granular Casts 1-5 (0) Sodium Level 119 mmol/L (136-145) Potassium Level 4.1 mmol/L (3.5-5.1) Chloride Level 91 mmol/L (98-107) Carbon Dioxide Level 18 mmol/L (22-29) Anion Gap 14.1 mmol/L (8-16) Blood Urea Nitrogen 27 mg/dL (7-26) Creatinine 1.55 mg/dL (0.57-1.11) Estimat Glomerular Filtration Rate 33 ML/MIN (60-) BUN/Creatinine Ratio 17 (6-25) Glucose Level 117 mg/dL (74-118) Calcium Level 10.1 mg/dL (8.4-10.2) Total Bilirubin 0.2 mg/dL (0.2-1.2) Aspartate Amino Transf (AST/SGOT) 27 IU/L (5-34) Alanine Aminotransferase (ALT/SGPT) 17 IU/L (0-55) Alkaline Phosphatase 62 IU/L (40-150) Creatine Kinase 400 IU/L (29-168) Creatine Kinase MB 4.20 ng/mL (0-5.0) Troponin I 0.006 ng/mL (0-0.300) Total Protein 8.6 g/dL (6.5-8.1) Albumin 4.1 g/dL (3.5-5.0) Globulin 4.5 g/dL (2.3-3.5) Albumin/Globulin Ratio 0.9 (0.8-2.0) Lipase 55 U/L (8-78) Lab results reviewed: Yes Imaging Imaging results reviewed: Yes Impressions IMPRESSION: 1. Colonic diverticulosis without acute diverticulitis. 2. Status post cholecystectomy and hysterectomy. No significant biliary dilatation. 3. Indeterminate right renal lesions. Recommend further evaluation with nonemergent ultrasound of kidneys. Critical Care Time Subsequent provider I assumed direction of critical care for this patient from another provider of my specialty. Assessment & Plan Assessment & Plan Final Impression: (1) OTH DISORDERS OF ELECTROLYTE AND FLUID BALANCE, NEC (2) HYPO-OSMOLALITY AND HYPONATREMIA Assessment & Plan 69-year-old female brought to the ED with diffuse abdominal pain, noted marked hyponatremia. Patient admitted for fluid resuscitation and left foot monitoring. Depart Disposition: ADMITTED Last Vital Signs Date Time Temp Pulse Resp B/P (MAP) Pulse Ox O2 Delivery O2 Flow Rate FiO2 11/11/19 18:38 56 19 100 11/11/19 17:53 141/58 11/11/19 15:36 98.1 Home Meds Reported Medications Omeprazole (OMEPRAZOLE) 40 Mg Capsule.dr, 1 CAP PO DAILY 11/11/19 Sulfamethoxazole/Trimethoprim (BACTRIM DS TABLET) 1 Each Tablet, 1 TAB PO BID, #60 TAB 11/11/19 Iron Fum & Ps Cmp/Vit C & B (INTEGRA CAPSULE) 1 Each Capsule 11/11/19 Hydroxychloroquine Sulfate (HYDROXYCHLOROQUINE SULFATE) 200 Mg Tablet, 200 MG PO BID 07/02/19 Famotidine (FAMOTIDINE) 20 Mg Tab, 40 MG PO DAILY, #30 TAB 07/02/19 Chlorthalidone (CHLORTHALIDONE) 25 Mg Tablet, 25 MG PO DAILY 07/02/19 [Baclofen] No Conflict Check, 10 MG PO DAILY 04/27/18 [Fenofibrate] No Conflict Check, 145 MG PO HS 04/27/18 [Atenolol] No Conflict Check, 25 MG PO DAILY 04/27/18 [Amlodipine Besylate] No Conflict Check, 10 MG PO DAILY 04/27/18 ELIZABTEH POWELL, Nov 11, 2019 19:15
--- NOTE | 2019-11-11 19:43 | Diagnostic Imaging Report ---
EXAM: CT Abdomen and Pelvis WITHOUT contrast INDICATION: Abdominal pain. Nausea. COMPARISON: None. TECHNIQUE: Abdomen and pelvis were scanned utilizing a multidetector helical scanner from the lung base to the pubic symphysis without administration of IV contrast. Absence of intravenous contrast decreases sensitivity for detection of focal lesions and vascular pathology. Coronal and sagittal reformations were obtained. Routine protocol was performed. IV CONTRAST: None. ORAL CONTRAST: Water RADIATION DOSE: Total DLP: 557.43 mGy*cm Estimated effective dose: (DLP x 0.015 x size factor) mSv COMPLICATIONS: None FINDINGS: LINES and TUBES: None. LOWER THORAX: Unremarkable HEPATOBILIARY: No focal hepatic lesions. No biliary ductal dilation. GALLBLADDER: There are cholecystectomy clips. SPLEEN: No splenomegaly. PANCREAS: No focal masses or ductal dilatation. ADRENALS: No adrenal nodules KIDNEYS/URETERS: No hydronephrosis. There is a 4.4 x 4.4 cm lesion in the posterior interpolar region of the right kidney, abutting and encasing the renal sinus on image 26 series 2 which demonstrates above than water attenuation. There is also a possible 1.5 cm intermediate attenuation lesion in the sternum. Lateral lower pole of the right kidney on image 31 series 2. Small left extrarenal pelvis. No stones. GI TRACT: No abnormal distention, wall thickening, or evidence of bowel obstruction. Appendix is not identified consistent with status post appendectomy. Scattered colonic diverticula without CT evidence of acute diverticulitis. PELVIC ORGANS/BLADDER: The uterus is absent. LYMPH NODES: No lymphadenopathy. VESSELS: There is moderate atherosclerotic disease in the aorta and major arterial branches. PERITONEUM / RETROPERITONEUM: No free air or fluid. BONES: There are degenerative changes in the lumbar spine. SOFT TISSUES: Unremarkable. IMPRESSION: 1. Colonic diverticulosis without acute diverticulitis. 2. Status post cholecystectomy and hysterectomy. No significant biliary dilatation. 3. Indeterminate right renal lesions. Recommend further evaluation with nonemergent ultrasound of kidneys. Signed by: Dr. Zak Shahid M.D. on 11/11/2019 7:39 PM
[2019-11-11] MEDS: SODIUM CHLORIDE 0.9% 1000ML 1,000 ML IV SCH (20:00)
--- NOTE | 2019-11-11 20:20 | NUR ---
PATIENT IS A NEW ADMIT THAT ARRIVED VIA STRETCHER. PATIENT IS AWAKE AND TALKING. PATIENT HAS BEEN TRANSFERRED INTO THE BED. BED IS IN THE LOWEST POSITION AND CALL LIGHT IS WITHIN REACH. WILL CONTINUE TO MONITOR PATIENT.
[2019-11-11 20:46] VITALS: BP 134/61
[2019-11-11 21:57] VITALS: BP 134/61
--- NOTE | 2019-11-11 22:28 | NUR ---
PATIENT IS COMPLAINING OF ABDOMINAL PAIN AND NAUSEA. PAGED. AWAITING CALL BACK.
[2019-11-11] MEDS ORDERED: ONDANSETRON HCL INJ 2MG/ML 2ML 2 MG/ML VIAL IV PRN (23:30)
[2019-11-11] MEDS ORDERED: FAMOTIDINE 20 MG/2 ML VIAL IV SCH (23:30)
[2019-11-11] MEDS ORDERED: MORPHINE SULFATE INJ 4 MG/ML INJ 1ML IV PRN (23:30)
[2019-11-11] MEDS ORDERED: HYDRALAZINE HCL 20 MG/ML VIAL IV PRN (23:30)
[2019-11-11] MEDS ORDERED: PROMETHAZINE 12.5MG/ NACL 0.9% 12.5 MG/50 ML BAG IV PRN (23:30)
[2019-11-12] VITALS (9 sets, daily range): BP systolic 121–134; BP diastolic 54–73
[2019-11-12] MEDS: CEFTRIAXONE SOD 1 GM/NS 50 ML 50 ML IV SCH ×2 (00:42→22:52)
[2019-11-12 05:42] LABS: BASOPHILS # (AUTO) 0.1 (0.0-0.1); BASOPHILS % 0.6 % (0.0-1.0); EOSINOPHILS # (AUTO) 0.3 (0.0-0.4); EOSINOPHILS % 3.2 % (0.0-6.0); HEMATOCRIT 27.7 % (34.2-44.1); LYMPHOCYTES # (AUTO) 2.4 (1.0-3.2); LYMPHOCYTES % 27.6 % (18.0-39.1); MEAN CORPUSCULAR HEMOGLOBIN 29.2 pg (28-32); MEAN CORPUSCULAR HGB CONC 32.5 g/dL (31-35); MEAN CORPUSCULAR VOLUME 89.9 fL (81-99); MONOCYTES # (AUTO) 0.5 (0.2-0.8); MONOCYTES % 5.9 % (4.4-11.3); NEUTROPHILS # (AUTO) 5.5 (2.1-6.9); NEUTROPHILS % 62.5 % (38.7-80.0); PLATELET COUNT 238 x10e3/uL (140-360); RED BLOOD COUNT 3.08 x10e6/uL (3.6-5.1); RED CELL DISTRIBUTION WIDTH 12.6 % (11.7-14.4)
[2019-11-12 06:16] LABS: CALCIUM 9.3 mg/dL (8.4-10.2); CREATININE, SERUM 1.24 mg/dL (0.57-1.11)
[2019-11-12] MEDS: SODIUM CHLORIDE 0.9% 1000ML 1,000 ML IV SCH ×4 (06:38→21:00)
[2019-11-12 06:44] LABS: MAGNESIUM 1.6 MG/DL (1.3-2.1); PHOSPHORUS 3.2 MG/DL (2.3-4.7)
--- NOTE | 2019-11-12 06:48 | NUR ---
PATIENT IS RESTING COMFORTABLY IN THE BED. BED IS IN LOWEST POSITION AND CALL AWAD IS WITHIN REACH
[2019-11-12 07:05] LABS: THYROID STIMULATING HORMONE 1.562 uIU/mL (0.350-4.940)
--- NOTE | 2019-11-12 08:53 | Diagnostic Imaging Report ---
EXAM: Complete Abdominal Ultrasound INDICATION: Abdominal pain, renal mass COMPARISON: Outside facility CT scan 11/11/2019 TECHNIQUE: Transverse and longitudinal images of the upper abdomen were obtained. FINDINGS: Liver: Size: 15.4 cm in the right midclavicular line, normal Appearance: Normal echogenicity, smooth contour Mass: No focal masses Spleen: Size: 8.4 x 2.8 x 2.3 cm, normal Echogenicity: Normal Mass: No focal masses Gallbladder: Surgically absent Bile Ducts: Intrahepatic Ducts: No dilatation Extrahepatic Ducts: Common bile duct measures 0.6 cm, no dilatation Pancreas: Visualized portions of the pancreatic head, neck and proximal body are normal. Right Kidney: Size: 9.8 x 5.7 x 4.2 cm Echogenicity: Normal Parenchymal thickness: Normal Collecting System: No hydronephrosis Stone: None Cyst/Mass: 4.2 x 4.1 x 3.6 cm parapelvic cyst with low-level internal echoes. 1.4 x 1.4 x 1.5 cm exophytic cyst of the interpolar region Left Kidney: Size: 10.7 x 5.7 x 4.4 cm Echogenicity: Normal Parenchymal thickness: Normal Collecting System: No hydronephrosis Stone: None Cyst/Mass: None Vessels: Aorta: Visualized portions are normal Inferior Vena Cava: Visualized portions are normal Main Portal Vein: 1.2 cm, normal size with hepatopetal flow. Free Fluid: No ascites or pleural effusion IMPRESSION: 1. The previously seen right renal mass likely corresponds to a 4.2 x 4.1 x 3.6 cm complex parapelvic cyst. Further nonemergent imaging evaluation with a dedicated renal mass protocol CT scan of the abdomen is recommended in order to exclude an enhancing component. 2. Otherwise unremarkable abdominal ultrasound. Signed by: Favian Gan MD on 11/12/2019 8:49 AM
[2019-11-12] MEDS: FAMOTIDINE 20 MG/2 ML VIAL IV SCH ×2 (09:00→21:00)
[2019-11-12] MEDS: HYDROXYCHLOROQUINE SULFATE 200 MG TAB PO SCH ×2 (09:00→17:59)
--- NOTE | 2019-11-12 09:08 | NUR ---
ERICA HOLDER COMPLETED PER MD ORDER, MD MORALES INTO SEE PT, DISCUSSED POC
[2019-11-12] MEDS ORDERED: MAGNESIUM SULFATE 2GM/50ML IV ONE (09:30)
[2019-11-12] MEDS ORDERED: MAGNESIUM SULFATE 2GM/50ML 50 ML IV ONE (10:15)
--- NOTE | 2019-11-12 15:25 | History and Physical ---
PRIMARY CARE PHYSICIAN: CHIEF COMPLAINT: Abdominal pain associated with nausea and vomiting and low sodium level of 119. HISTORY: The patient is a 69-year-old female, recently started on Bactrim for an asymptomatic urinary tract infection. The patient was taken back to home. She is also on a diuretic, chlorthalidone. The patient came in with a sodium level of 119, but she is also having severe intractable nausea and vomiting. The patient was given medication. She is doing much better. Urinalysis is otherwise unremarkable. It could be from previously taking Bactrim. The patient is stable. She is receiving normal saline. PAST MEDICAL HISTORY: Diverticulosis, hypertension, rheumatoid arthritis, dyslipidemia, and osteoarthritis. PAST SURGICAL HISTORY: Cholecystectomy, appendectomy, and tubal ligation. SOCIAL HISTORY: The patient does not smoke or use alcohol. No regular drugs. ALLERGIES: TO GABAPENTIN, GLIPIZIDE, LISINOPRIL, METFORMIN, METRONIDAZOLE, AND PANTOPRAZOLE. PHYSICAL EXAMINATION: VITAL SIGNS: Temperature is 97, blood pressure 129/59, pulse rate 48, and respirations 18. GENERAL: The patient is not in acute distress. HEENT: Normocephalic and atraumatic. Anicteric. NECK: Supple grossly. PULMONARY: Clear. CARDIOVASCULAR: Bradycardia. The patient is on beta-bibi. ABDOMEN: Soft. Nondistention. Generalized discomfort. EXTREMITIES: No cyanosis or edema. NEUROLOGIC: No focal deficit. LABORATORY DATA: Sodium is 119, potassium 4.1, chloride 91, bicarb 18, BUN is 27, creatinine 1.5, and glucose is 117. WBC is 9.4, hemoglobin 10.5, hematocrit 30.5, and platelets is 393. Urinalysis unremarkable. Coronavirus disease PCR is still pending. IMAGING TESTS: CTs of abdomen and pelvis without contrast showed colonic diverticulosis without acute diverticulitis. Status post cholecystectomy and hysterectomy. Indeterminate right renal lesion. Abdominal ultrasound of the kidney also included showing that the patient had a 4.2 x 4.1 x 3.6 cm complex parapelvic cyst. Further evaluation with a dedicated renal mass protocol CT as an outpatient is indicated. IMPRESSION: 1. Severe hyponatremia secondary to complication of the intractable nausea and vomiting. It could be secondary to taken the Bactrim allergic reaction and on top of that the patient was on diuretic, chlorthalidone 25 mg daily. 2. Dehydration from the above. 3. Acute kidney injury, mildly secondary to the above. 4. Bradycardia, probably combination of the patient's condition, but also because the patient is also taking atenolol 25 mg daily. PLAN: IV fluids, normal saline. Resume some home medication except for atenolol and chlorthalidone for now. Supportive measure. We will consult Dr. Peter Bajwa regarding renal mass that the patient may be able to follow up as an outpatient. We will continue to follow the patient. Correct electrolytes magnesium, phosphorus, and potassium and repeat lab work in the morning. I will go ahead and give the patient empirically Rocephin 1 g daily. The patient was also received antiemetic and supportive measures, seems to be doing slightly better. MD MARCOS Shaw/VANE /[id number]
--- NOTE | 2019-11-12 21:11 | Consultation ---
DATE OF CONSULTATION: 11/12/2019 Urology Consultation REASON FOR CONSULTATION: Right renal mass. HISTORY OF PRESENT ILLNESS: Mely Montes is a 69-year-old woman, who does not really have any urological history. She has had nocturia. She does not have any hematuria or dysuria and has not really had problems with urinary tract infections. The patient was admitted for dizziness and abdominal pain and urological consultation was sought, once the renal mass was noted on CT and ultrasound. PAST MEDICAL AND SURGICAL HISTORY: 1. Status post left knee meniscus repair. 2. Status post left carpal tunnel repair. 3. 6, para 6, with two children . 4. Status post total abdominal hysterectomy, bilateral salpingo-oophorectomy. 5. Status post appendectomy. 6. History of diverticulitis. 7. Hypertension. 8. Rheumatoid arthritis. 9. Dyslipidemia. 10. Osteoarthritis. ALLERGIES: PLEASE REFER TO THE MAR. CURRENT MEDICATIONS: Please refer to the MAR. REVIEW OF SYSTEMS: Discussed as above history of present illness, past medical history, otherwise negative for all systems. PHYSICAL EXAMINATION: GENERAL: A very pleasant 69-year-old woman, sitting up in bed, no apparent distress. VITAL SIGNS: She is currently afebrile. Vitals are currently stable. ABDOMEN: Soft, nondistended, and nontender without costovertebral angle tenderness. The patient is obese. For the remaining physical examination systems, please refer to the admission history and physical on the chart. LABORATORY STUDIES: CT scan of the abdomen and pelvis showed a right renal lesion. Ultrasound revealed that this is a cyst and there is also a secondary exophytic cyst as well. Followup was recommended. The patient's sodium is 130, it was as low as 119. Her creatinine is 1.24, it was as low as 1.55. White blood cell count is 8740, hemoglobin 9, platelets 238,000. Urinalysis is unremarkable. COVID test is pending. ASSESSMENT: 1. Right renal mass that is a cyst. 2. Nocturia. 3. Hyponatremia. 4. Chronic renal insufficiency. 5. Obesity. 6. Anemia. 7. Nausea and vomiting that are now better. PLAN: 1. I defer the hematological and electrolyte abnormalities to the primary team. 2. Follow up with me in about a month, [id number] to establish long-term followup regimen for this right renal cystic mass. Thank you very much for involving us care of your patient. We will be happy to follow her along with you as well as an outpatient. MD KIMANI Martin/VANE /[id number] cc: Priscilla Taylor
[2019-11-13 00:45] VITALS: BP 135/61
[2019-11-13 04:00] VITALS: BP 139/62
[2019-11-13 06:02] LABS: ANION GAP 11.3 mmol/L (8-16); CALCIUM 9.3 mg/dL (8.4-10.2); CREATININE, SERUM 1.1 mg/dL (0.57-1.11); POTASSIUM 4.3 mmol/L (3.5-5.1)
[2019-11-13 06:17] LABS: MAGNESIUM 1.8 MG/DL (1.3-2.1); PHOSPHORUS 2.6 MG/DL (2.3-4.7)
--- NOTE | 2019-11-13 06:49 | NUR ---
PATIENT IS RESTING COMFORTABLY IN THE BED. BED IS IN LOWEST POSITION AND CALL AWAD IS WITHIN REACH
--- NOTE | 2019-11-13 07:05 | NUR ---
Received bedside shift report. Patient resting quietly, denies pain at this time. Call light within reach.
[2019-11-13 08:20] VITALS: BP 126/53
[2019-11-13 08:46] VITALS: BP 126/53
[2019-11-13] MEDS: SODIUM CHLORIDE 0.9% 1000ML 1,000 ML IV SCH (09:48)
[2019-11-13] MEDS: FAMOTIDINE 20 MG/2 ML VIAL IV SCH (09:48)
[2019-11-13] MEDS: HYDROXYCHLOROQUINE SULFATE 200 MG TAB PO SCH (09:48)
--- NOTE | 2019-11-13 10:48 | Discharge Summary ---
PRIMARY CARE PHYSICIAN: Priscilla Taylor. INSTALLATION SUPERVISOR: Dr. Peter Bajwa. FINAL DIAGNOSES: 1. Intractable nausea and vomiting associated with abdominal pain and low sodium level 119, most likely secondary to allergic reaction to drugs, such as Bactrim where she initiated. 2. Hyponatremia, combination of drug allergic reaction and chlorthalidone diuretic. 3. Dehydration, resolved. 4. Chronic anemia. 5. History of inflammatory arthritis. SUMMARY: The patient is a 69-year-old female with multiple drug allergies by history. The patient is very sensitive to medication overall. She was given Bactrim for an abnormal urinalysis. After taking Bactrim a few days, the patient was having more nausea and vomiting. The patient symptom was much worse. She came in with sodium levels 119. At baseline, the patient takes blood pressure atenolol and chlorthalidone. She is also on Norvasc as well. Apparently, the blood pressure was low, most likely secondary to volume depletion from nausea and vomiting. The patient then was given normal saline and the blood pressure medication was on hold. She also had a CT scan of the abdomen and pelvis, showed colonic diverticulosis without acute diverticulitis. She is status post cholecystectomy and hysterectomy. There is an indeterminate right renal lesion confirmed with subsequent abdominal ultrasound of the kidney. The impression was the right renal mass likely correspond to a 4.2 x 4.1 x 3.6 cm complex cyst. The patient is otherwise stable. She will need to have that follow up as an outpatient for any further workup. Dr. Peter Bajwa consulted. The patient to follow up with Dr. Peter Bajwa in approximately 1-2 weeks for a visit and most likely repeated scans. The patient is otherwise stable. She will go home today. Resume home medication and hold off on chlorthalidone and atenolol for now. She will follow up with Dr. Priscilla Taylor to get referral for Dr. Peter Bajwa. Discussed with the patient at length. The patient is otherwise stable. Lab work including a glycohemoglobin A1c was 5.9. Urinalysis was otherwise unremarkable. Serology; coronavirus PCR is still pending. WBC 8.4. No respiratory problem. Chemistry; BUN and creatinine are now 18 and 1.1 from 27 and 1.55. The patient's dehydration resolved. The patient is otherwise stable. Vital signs are stable. Temperature is 98, blood pressure 126/53, pulse rate is 56, respirations 18. The patient is stable, discharged home. All instructions given. MD MARCOS Shaw/VANE /[id number]
--- NOTE | 2019-11-13 15:33 | NUR ---
Nutrition Screen Note RD Recommendation for Physician: -Recommend to continue current diet as ordered Plan of Care: RD following, monitoring for tolerance and adequacy Nutrition reason for involvement: consult for diet education Primary Diagnose(s): hypo-osmolality and hyponatremia, OTH disorders of electrolyte and fluid balance PMH: Diverticulosis, hypertension, rheumatoid arthritis, dyslipidemia, and osteoarthritis Ht: 61 in Wt: 169 lb BMI: 31.9 kg/m2 IBW:[address] Assessment: (11/13/19) Chart reviewed. Labs and meds reviewed. Pt is a 69 year old female admitted with hypo-osmolality and hyponatremia and OTH disorders of electrolyte and fluid balance. Per MD note, pt had a CT scan that showed a right renal lesion. Pt stated she has been eating <50% of meals during admission (2 days), but was eating well prior to coming to the hospital. Pt reports she usually weighs 160 lbs lbs; however, pt currently has a weight of 169 lbs in chart. No N/V noted. Pt was getting ready to be discharged at time of visit and stated RN had provided her with diet information. Pt did not have any questions. Current Diet: cardiac Malnutrition Evaluation (11/13/19) The patient does not meet criteria for a specified degree of malnutrition at this time. Will re-evaluate at follow-up as appropriate. Diet Education Needs Assessment: Pt was getting ready to be discharged at time of visit and stated RN had provided her with diet information. Pt did not have any questions Nutrition Care Level: low Signed: Deonna Karimi, RD, LD
== END 2019-11-13 12:05 | disposition home or self-care (01) | DRG 683 ==
LOC: ER 15:14 → ERHOLD 17:32 → MED/SURG 20:07
PROVIDERS: ADMIT Internal Medicine; ATTEND Internal Medicine
DX: N17.9 Acute kidney failure, unspecified (principal); E87.1 Hypo-osmolality and hyponatremia; T36.8X5A Adverse effect of other systemic antibiotics, initial encounter; E78.5 Hyperlipidemia, unspecified; M06.9 Rheumatoid arthritis, unspecified; M19.90 Unspecified osteoarthritis, unspecified site; Z79.84 Long term (current) use of oral hypoglycemic drugs; E86.0 Dehydration; R00.1 Bradycardia, unspecified; N28.1 Cyst of kidney, acquired; R35.1 Nocturia; N18.9 Chronic kidney disease, unspecified; E66.9 Obesity, unspecified; D64.9 Anemia, unspecified; K57.30 Diverticulosis of large intestine without perforation or abscess without bleeding; Z90.49 Acquired absence of other specified parts of digestive tract; Z68.31 Body mass index [BMI] 31.0-31.9, adult; I12.9 Hypertensive chronic kidney disease with stage 1 through stage 4 chronic kidney disease, or unspecified chronic kidney disease
CPT/HCPCS: 36415; 74176; 76700; 80048; 80053; 81001; 82550; 82553; 83036; 83690; 83735; 84100; 84443; 84484; 85025; 87635; 99284; J0696; J3475; J7030

== ENCOUNTER → 2020-10-27 | Day surgery (SDC) | payer MEDICARE ==
[2020-10-24 10:57] LABS: BASOPHILS # (AUTO) 0.1 (0.0-0.1); BASOPHILS % 0.6 % (0.0-1.0); EOSINOPHILS # (AUTO) 0.2 (0.0-0.4); EOSINOPHILS % 2.2 % (0.0-6.0); HEMATOCRIT 29.4 % (34.2-44.1); HEMOGLOBIN 9.9 g/dL (12.0-16.0); LYMPHOCYTES # (AUTO) 2.9 (1.0-3.2); LYMPHOCYTES % 31.7 % (18.0-39.1); MEAN CORPUSCULAR HEMOGLOBIN 30.7 pg (28-32); MEAN CORPUSCULAR HGB CONC 33.7 g/dL (31-35); MONOCYTES # (AUTO) 0.7 (0.2-0.8); MONOCYTES % 7.8 % (4.4-11.3); NEUTROPHILS # (AUTO) 5.2 (2.1-6.9); NEUTROPHILS % 57.4 % (38.7-80.0); PLATELET COUNT 343 x10e3/uL (140-360); RED BLOOD COUNT 3.23 x10e6/uL (3.6-5.1); RED CELL DISTRIBUTION WIDTH 12.7 % (11.7-14.4)
[2020-10-24 11:17] LABS: ALBUMIN 3.9 g/dL (3.5-5.0); ALBUMIN/GLOBULIN RATIO 0.9 (0.8-2.0); CALCIUM 10.2 mg/dL (8.4-10.2); CREATININE, SERUM 1.39 mg/dL (0.57-1.11)
[~2020-10-27] MED LIST changes: +B&O 60MG R/S 60 MG SUPP PR ONE; +BACTRIM DS TAB1 EACH PO; +CEFTRIAXONE SOD 1 GM VIAL ONE; +DEXAMETHASONE SOD PHOS INJ 4 MG/ML VIAL ONE; +FENTANYL CITRATE/PF 100MCG/2 ML INJ ONE; +INTEGRA CAPSUL1 EACH; +IOPAMIDOL 300MG/ML 50ML INFUS..BTL IV ONE; +LABETOLOL PO; +LIDOCAINE HCL 2% LOCAL INJ 5 ML SDV VIAL INJ ONE; +MUPIROCIN 2% OINT 22 GM TUBE ONE; +OMEPRAZOLE40 MG PO; +ONDANSETRON HCL INJ 2MG/ML 2ML 2 MG/ML VIAL ONE; +POVIDONE IODINE 0.05% 0.05 % ML PO ONE; +PROPOFOL IV EMULSION 10 MG/ML 20 ML VIAL ONE; +SEVOFLURANE INHAL SOLN 250 ML PEN BTL ONE; +SODIUM CHLORIDE 0.9% 50ML 50 ML ONE; +VANCOMYCIN 1GM/NS 250 ML 250 ML ONE
[2020-10-27 16:40] VITALS: BP 162/72
== END | disposition home or self-care (01) ==
LOC: OR 13:16
PROVIDERS: ATTEND Urology
DX: N39.0 Urinary tract infection, site not specified (principal); T19.2XXA Foreign body in vulva and vagina, initial encounter; N89.8 Other specified noninflammatory disorders of vagina; I10 Essential (primary) hypertension; I25.10 Atherosclerotic heart disease of native coronary artery without angina pectoris; K21.9 Gastro-esophageal reflux disease without esophagitis; Z91.09 Other allergy status, other than to drugs and biological substances; M06.9 Rheumatoid arthritis, unspecified; E78.5 Hyperlipidemia, unspecified; E11.9 Type 2 diabetes mellitus without complications; K57.90 Diverticulosis of intestine, part unspecified, without perforation or abscess without bleeding; X58.XXXA Exposure to other specified factors, initial encounter; Z01.810 Encounter for preprocedural cardiovascular examination; Z01.812 Encounter for preprocedural laboratory examination; Z01.818 Encounter for other preprocedural examination; Z20.822 Contact with and (suspected) exposure to COVID-19; Z85.01 Personal history of malignant neoplasm of esophagus
CPT/HCPCS: 36415; 52005; 57135; 71046; 74420; 80053; 85025; 88300; 88302; 93005; C1758; J0696; J1100; J2001; J2405; J2704; J3010; J3370; Q9967; U0002; 88305

== ENCOUNTER → 2021-08-28 | Day surgery (SDC) | payer MEDICARE ==
[2021-08-24 10:02] LABS: BASOPHILS # (AUTO) 0.1 (0.0-0.1); BASOPHILS % 0.7 % (0.0-1.0); EOSINOPHILS # (AUTO) 0.1 (0.0-0.4); EOSINOPHILS % 1.8 % (0.0-6.0); HEMATOCRIT 29.7 % (34.2-44.1); LYMPHOCYTES # (AUTO) 2.3 (1.0-3.2); LYMPHOCYTES % 29.4 % (18.0-39.1); MEAN CORPUSCULAR HEMOGLOBIN 31.1 pg (28-32); MEAN CORPUSCULAR HGB CONC 33.7 g/dL (31-35); MEAN CORPUSCULAR VOLUME 92.2 fL (81-99); MONOCYTES # (AUTO) 0.6 (0.2-0.8); MONOCYTES % 7.8 % (4.4-11.3); NEUTROPHILS # (AUTO) 4.6 (2.1-6.9); NEUTROPHILS % 59.6 % (38.7-80.0); PLATELET COUNT 352 x10e3/uL (140-360); RED BLOOD COUNT 3.22 x10e6/uL (3.6-5.1)
[~2021-08-28] MED LIST changes: -B&O 60MG R/S 60 MG SUPP PR ONE; -CEFTRIAXONE SOD 1 GM VIAL ONE; +COREG3.125 MG PO; -DEXAMETHASONE SOD PHOS INJ 4 MG/ML VIAL ONE; -FENTANYL CITRATE/PF 100MCG/2 ML INJ ONE; -IOPAMIDOL 300MG/ML 50ML INFUS..BTL IV ONE; +LASIX20 MG PO; +MAGNESIUM OXID400 MG PO; -MUPIROCIN 2% OINT 22 GM TUBE ONE; -ONDANSETRON HCL INJ 2MG/ML 2ML 2 MG/ML VIAL ONE; +POTASSIUM CHLO20 MEQ PO; -POVIDONE IODINE 0.05% 0.05 % ML PO ONE; -SEVOFLURANE INHAL SOLN 250 ML PEN BTL ONE; -SODIUM CHLORIDE 0.9% 50ML 50 ML ONE; -VANCOMYCIN 1GM/NS 250 ML 250 ML ONE
[2021-08-28 14:53] VITALS: BP 130/71
== END | disposition home or self-care (01) ==
LOC: OR 11:37
PROVIDERS: ATTEND Internal Medicine Gastroenterology
DX: D3A.8 Other benign neuroendocrine tumors (principal); K29.70 Gastritis, unspecified, without bleeding; K44.9 Diaphragmatic hernia without obstruction or gangrene; K21.9 Gastro-esophageal reflux disease without esophagitis; K59.00 Constipation, unspecified; D64.9 Anemia, unspecified; E11.9 Type 2 diabetes mellitus without complications; R00.1 Bradycardia, unspecified; I10 Essential (primary) hypertension; E78.5 Hyperlipidemia, unspecified; M19.90 Unspecified osteoarthritis, unspecified site; M35.00 Sjogren syndrome, unspecified; Z01.810 Encounter for preprocedural cardiovascular examination; Z01.812 Encounter for preprocedural laboratory examination; Z20.822 Contact with and (suspected) exposure to COVID-19; Z79.899 Other long term (current) drug therapy; Z68.32 Body mass index [BMI] 32.0-32.9, adult
CPT/HCPCS: 36415 ×2; 43239; 82948; 85025; 88305; 88312; 93005; U0002; J2001